=== PATIENT | female | born 1995 | race Caucasian/White ===

== ENCOUNTER 2025-05-03 08:00 | Emergency (ER) | payer BC, SELFPAY ==
[2025-05-03 08:15] VITALS: BMI 33.3
[2025-05-03 08:34] VITALS: BP 122/94
--- NOTE | 2025-05-03 08:39 | ED.GENMED ---
History of Present Illness
General
Chief Complaint: Abdominal Symptoms
Source: patient
Exam Limitations: none
Time Seen by Provider: 05/03/25 08:12
Nursing documentation reviewed up to this point in time: agreed with
History of Present Illness
History of Present Illness:
Patient is a 29-year-old female past medical history of endometriosis presents to the ER with left-sided abdominal pain. This started 2 days ago. Has been persistent. She reports this started mostly in her left upper lateral abdomen now radiates
to the left lower abdomen. She has tried Pepto-Bismol for gas however has not relieved her symptoms. She had very mild left back discomfort. She went to urgent care yesterday and urinalysis was negative. She denies any urinary frequency or
urgency. Patient's last menstrual period was 2 weeks ago. She is on Depoprovera for endometriosis. She is followed by [facility].
Phy Exam
General Physical Exam
General Presentation: no apparent distress
General age: appears stated age
General Skin: warm and dry
General Habitus: normal
General Mental: alert
General Hydration: appears well hydrated
Gastrointestinal Exam
Gastrointestinal Exam: soft and other ( Upper and lower left-sided abdominal tenderness no guarding)
Neurological Exam
Neurological Exam: alert and oriented x3
Musculoskeletal Exam
Musculoskeletal Exam: full ROM
Skin Exam
Skin Exam: normal color and warm/dry
Psychiatric Exam
Psychiatric Exam: normal mood/affect
Course
Orders/Labs/Results
Orders:
Orders
05/03/25 08:26
CBC/With Diff [Complete Blood Count/With Diff] Urgent
Comprehensive Metabolic Panel Urgent
HCG, Serum Qualitative Screen Urgent
Comment: ADD ON
05/03/25 08:33
IV Insert/Care/Rem.- Treatment PRN
0.9% Sodium Chloride 1000 ml [Nss] 1,000 ml IV BOLUS
Ketorolac [Toradol] 15 mg IV NOW STA
05/03/25 08:34
CT Abd/Pel (IV only)-DH only Urgent
Comment:
Reason For Exam: left sided abd pain
05/03/25 08:38
Add On- LAB Urgent
Tests Added?: hcg qualitative
05/03/25 10:25
Ciprofloxacin HCl [Cipro] 500 mg PO NOW STA
05/03/25 10:26
MetroNIDAZOLE [Flagyl] 500 mg PO NOW STA
05/03/25 10:36
Urinalysis Reflex To Culture Urgent
Date Specimen was Collected: 05/03/25
Time Specimen was Collected: 10:34
Urine Microscopic Reflex Cult Urgent
Abnormal Lab Results
05/03/25 05/03/25
08:26 10:36
Abs Immat Gran (auto) 0.1 H 10^3/uL
(0-0.05)
Absolute Neuts (auto) 6.9 H 10^3/uL
(1.4-6.5)
Immature Gran % 0.8 H %
(0-0.5)
Neutrophils % 77.8 H %
(42.2-75.2)
Lymphocytes % 14.8 L %
(20.5-51.1)
Chloride 109 H mmol/L
(98-107)
Glucose 103 H mg/dl
(70-99)
Urine Albumin (Reflex) 1+ A
(Neg - Trace)
05/03/25 08:26
05/03/25 08:26
Vital Signs
Initial and Last Documented VS:
Initial Vital Signs
Temp Pulse Resp Pulse Ox
98.5 F 97 16 98
05/03/25 08:01 05/03/25 08:01 05/03/25 08:01 05/03/25 08:01
Last Documented Vital Signs
Temp Pulse Resp BP Pulse Ox
98.5 F 72 20 111/68 100
05/03/25 08:01 05/03/25 10:00 05/03/25 10:00 05/03/25 10:00 05/03/25 10:00
Air Route Controller consulted with Physician
Air Route Controller consulted with physician?: Yes
Name of Physician Consulted: Milagros
MDM/Problems Addressed
Differential Diagnosis Includes:
Not limited to endometriosis, less likely ovarian cyst, appendicitis, diverticulitis
MDM/Problems Addressed:
Patient is a 29-year-old female with history of endometriosis presented for left-sided abdominal pain for the past [address] days[address] CAT scan does show diverticulitis, moderate in the mid descending colon no evidence of perforation or abscess there is mild
diffuse bladder wall thickening. I did review CAT scan with radiology patient's adnexa and uterus appear normal. Patient is afebrile with a normal white count. pt is allergic to PCN reports she had hives as a child as discussed ED physician will
give Cipro and Flagyl.
We did review recent study on treating diverticulitis without antibiotics and clear liquid diet however she does agree to antibiotics. I did educate patient on Cipro and possible tendon issues as well.
Patient does have an established GI doctor she saw before, we will have her follow-up with GI as well as family doctor.
*Radiology
Radiology exam reviewed: radiology read reviewed
*Pulse Oximetry
SaO2: 99
Oxygen Mode of Delivery: Room air
Patient hypoxic: no
*Critical Care Note
Total Time (30-74mins, 75-104mins- exclusive of procedures): Not Applicable
ED Attending Note
-
Portions of this chart may have been created with voice recognition software.� Occasional wrong word or��sound alike� substitutions may have occurred due to the inherent limitations of voice recognition software.
Discharge Plan
Departure
Patient Disposition: Home (Routine Discharge)
Date of Disposition: 05/03/25
Time of Disposition: 11:03
Patient with high blood pressure during this ER visit?: No
Condition: Fair
Covid-19: Not Applicable
Discharge Problem:
Diverticulitis
Instructions: Diverticulitis (DC), BLOOD PRESSURE
Prescriptions:
New
metronidazole 500 mg tablet
500 mg PO Q8H Qty: 21 0RF
ciprofloxacin HCl [Cipro] 500 mg tablet
500 mg PO BID Qty: 14 0RF
Referrals:
Hailey Lehman MD [Family Provider, Family Practice]
Activity Restrictions/Additional Instructions:
As discussed take antibiotics as directed for the next 7 days. [place] diet as tolerated. Follow-up with your family doctor the next 2 days as well as your GI doctor. Return if any worsening of symptoms include increasing pain vomiting fever chills.
Interventions
Interventions:
*Risk Screen - Suicide Last Done: 05/03/25 08:01
*General Assessment Last Done: 05/03/25 08:15
*Neglect/Abuse Screening Last Done: 05/03/25 08:01
*ED- Fall Risk Assessment Last Done: 05/03/25 08:15
*ED COVID-19 Vaccine History Last Done: 05/03/25 08:15
WK-Rqxfhj-Qrujrnprbt Assessment Last Done: 05/03/25 08:15
Discharge Date and Time
Print Language: ICELANDIC
[2025-05-03] MEDS: TORADOL 15 MG IV (08:40)
[2025-05-03] MEDS: NSS 1000 IV (08:41)
[2025-05-03 08:44] LABS: Hematocrit 37.2 % (37.0-47.0); Hemoglobin 13.1 g/dL (12.0-16.0); Mean Corp Hgb Conc. 35.2 g/dL (33.0-37.0); Mean Corpuscular Volume 87.1 fL (81.0-99.0); Nucleated Red Blood Cells % 0 %; Platelet Count 224 10^3/uL (130-400); Red Cell Dist. Width 12.5 % (11.5-14.5)
[2025-05-03 08:49] LABS: ALT (SGPT) 14 U/L (0-35); AST (SGOT) 14 U/L (14-36); Albumin 4.4 g/dl (3.5-5.0); Alkaline Phosphatase 47 U/L (38-126); Blood Urea Nitrogen 9 mg/dl (7-17); Calcium 9.6 mg/dl (8.4-10.2); Carbon Dioxide 24 mmol/L (22-30); Chloride 109 mmol/L (98-107); Estimated Creatinine Clearance -28 ml/min; Glucose 103 mg/dl (70-99); Potassium 3.9 mmol/L (3.5-5.1); Sodium 140 mmol/L (135-145); Total Protein 7.2 g/dl (6.3-8.2); eGFR > 60.00
[2025-05-03 09:00] VITALS: BP 111/74
[2025-05-03 09:17] LABS: HCG, Serum Qualitative Screen Negative
[2025-05-03 10:00] VITALS: BP 111/68
[2025-05-03] MEDS: CIPRO 500 MG PO (10:36)
[2025-05-03] MEDS: FLAGYL 500 MG PO (10:36)
[2025-05-03 10:46] LABS: Urine Character Clear (Clear)
[2025-05-03 11:03] LABS: Urine Red Blood Cell 0-2 /HPF (0-2); Urine White Cell 0-2 /HPF (0-5)
[2025-05-03 11:10] VITALS: BP 129/64
== END 2025-05-03 11:11 | disposition home or self-care (01) ==
LOC: EMR 08:00
PROVIDERS: Nurse Practitioner; EMERGENCY PHYSICIAN Emergency Medicine; FAMILY PHYSICIAN Family Medicine
DX: K57.32 Diverticulitis of large intestine without perforation or abscess without bleeding (principal); N32.89 Other specified disorders of bladder; N80.9 Endometriosis, unspecified; Z88.0 Allergy status to penicillin
CPT/HCPCS: 99284; 96374; 96361; 74177; 80053; 81003; 81015; 84703; 85025; Q9967